=== PATIENT | female | born 1940 | race American Indian/Alaskan Native ===

== ENCOUNTER → 2017-05-02 08:49 | Outpatient (CLI) | payer OTHER ==
[~2017-05-02 08:49] MED LIST: LASIX20 MG; NORVASC5 MG; ZOCOR20 MG
== END | disposition home or self-care (01) ==
LOC: LAB 08:49
DX: I10 Essential (primary) hypertension (principal); M54.5 Low back pain; M81.0 Age-related osteoporosis without current pathological fracture; M79.7 Fibromyalgia; M35.3 Polymyalgia rheumatica; R26.2 Difficulty in walking, not elsewhere classified; R26.89 Other abnormalities of gait and mobility; H40.10X1 Unspecified open-angle glaucoma, mild stage; M25.522 Pain in left elbow; Z12.31 Encounter for screening mammogram for malignant neoplasm of breast; Z13.820 Encounter for screening for osteoporosis; Z12.11 Encounter for screening for malignant neoplasm of colon; M89.8X9 Other specified disorders of bone, unspecified site; G62.89 Other specified polyneuropathies; M15.8 Other polyosteoarthritis; E78.89 Other lipoprotein metabolism disorders; I49.8 Other specified cardiac arrhythmias; I73.89 Other specified peripheral vascular diseases

== ENCOUNTER 2017-05-02 09:41 | Outpatient (CLI) | payer OTHER | END 2017-05-02 09:54 | disposition home or self-care (01) | LOC: MAMO-SONO 09:41 | DX: Z12.31 Encounter for screening mammogram for malignant neoplasm of breast (principal); Z87.898 Personal history of other specified conditions; I10 Essential (primary) hypertension; M54.5 Low back pain; E78.9 Disorder of lipoprotein metabolism, unspecified; M89.9 Disorder of bone, unspecified; G62.89 Other specified polyneuropathies; M15.8 Other polyosteoarthritis; M81.0 Age-related osteoporosis without current pathological fracture; I49.9 Cardiac arrhythmia, unspecified; I73.89 Other specified peripheral vascular diseases; M79.7 Fibromyalgia; M35.3 Polymyalgia rheumatica; R26.2 Difficulty in walking, not elsewhere classified ==

== ENCOUNTER 2017-08-03 08:35 | Outpatient (CLI) | payer OTHER | END 2017-08-03 08:43 | disposition home or self-care (01) | LOC: LAB 08:35 | DX: I10 Essential (primary) hypertension (principal); M54.5 Low back pain; E78.89 Other lipoprotein metabolism disorders; M89.8X8 Other specified disorders of bone, other site; G62.89 Other specified polyneuropathies; M15.8 Other polyosteoarthritis; M81.0 Age-related osteoporosis without current pathological fracture; I73.89 Other specified peripheral vascular diseases; M79.7 Fibromyalgia; M35.3 Polymyalgia rheumatica; R26.2 Difficulty in walking, not elsewhere classified; R26.89 Other abnormalities of gait and mobility; H40.10X1 Unspecified open-angle glaucoma, mild stage; M25.522 Pain in left elbow; Z12.31 Encounter for screening mammogram for malignant neoplasm of breast; Z13.820 Encounter for screening for osteoporosis ==

== ENCOUNTER 2017-11-07 08:03 | Outpatient (CLI) | payer OTHER | END 2017-11-07 08:08 | disposition home or self-care (01) | LOC: LAB 08:03 | DX: I10 Essential (primary) hypertension (principal); M54.5 Low back pain; E78.89 Other lipoprotein metabolism disorders; M89.9 Disorder of bone, unspecified; G62.89 Other specified polyneuropathies; M15.8 Other polyosteoarthritis; M81.0 Age-related osteoporosis without current pathological fracture; I49.8 Other specified cardiac arrhythmias; I73.89 Other specified peripheral vascular diseases; M25.522 Pain in left elbow; Z12.31 Encounter for screening mammogram for malignant neoplasm of breast; Z13.820 Encounter for screening for osteoporosis; Z12.11 Encounter for screening for malignant neoplasm of colon ==

== ENCOUNTER 2017-11-10 15:01 | Emergency (ER) | payer OTHER ==
[~2017-11-10] VITALS: Ht 154.9 cm; Wt 67.1 kg
== END 2017-11-10 21:24 | disposition home or self-care (01) ==
LOC: ER 15:01
DX: M54.2 Cervicalgia (principal); M25.512 Pain in left shoulder

== ENCOUNTER 2018-03-09 08:11 | Outpatient (CLI) | payer OTHER | END 2018-03-09 08:18 | disposition home or self-care (01) | LOC: LAB 08:11 | DX: I10 Essential (primary) hypertension (principal); M54.5 Low back pain; E78.89 Other lipoprotein metabolism disorders; M89.8X8 Other specified disorders of bone, other site; G62.89 Other specified polyneuropathies; M15.0 Primary generalized (osteo)arthritis; I49.8 Other specified cardiac arrhythmias; I73.89 Other specified peripheral vascular diseases; M79.7 Fibromyalgia; M35.3 Polymyalgia rheumatica; R26.2 Difficulty in walking, not elsewhere classified; R26.89 Other abnormalities of gait and mobility; H40.10X1 Unspecified open-angle glaucoma, mild stage; M25.522 Pain in left elbow; Z12.31 Encounter for screening mammogram for malignant neoplasm of breast; Z13.820 Encounter for screening for osteoporosis ==

== ENCOUNTER 2018-06-11 08:51 | Outpatient (CLI) | payer OTHER | END 2018-06-11 09:57 | disposition home or self-care (01) | LOC: LAB 08:51 | DX: M54.5 Low back pain (principal); I10 Essential (primary) hypertension; E78.89 Other lipoprotein metabolism disorders; M89.8X8 Other specified disorders of bone, other site; G62.89 Other specified polyneuropathies; M15.8 Other polyosteoarthritis; M81.0 Age-related osteoporosis without current pathological fracture; I49.8 Other specified cardiac arrhythmias; I73.89 Other specified peripheral vascular diseases; M79.7 Fibromyalgia; M35.3 Polymyalgia rheumatica; R26.2 Difficulty in walking, not elsewhere classified; R26.89 Other abnormalities of gait and mobility; H40.10X1 Unspecified open-angle glaucoma, mild stage; M25.522 Pain in left elbow; M06.4 Inflammatory polyarthropathy; Z12.31 Encounter for screening mammogram for malignant neoplasm of breast; Z68.27 Body mass index [BMI] 27.0-27.9, adult ==

== ENCOUNTER → 2018-06-11 | Outpatient (CLI) | payer OTHER | END | disposition home or self-care (01) | LOC: MAMO-SONO 09:45 | DX: Z12.31 Encounter for screening mammogram for malignant neoplasm of breast (principal); Z87.898 Personal history of other specified conditions; I10 Essential (primary) hypertension; M54.5 Low back pain; E78.89 Other lipoprotein metabolism disorders; M81.0 Age-related osteoporosis without current pathological fracture; M79.7 Fibromyalgia; M35.3 Polymyalgia rheumatica; R26.2 Difficulty in walking, not elsewhere classified ==

== ENCOUNTER 2018-09-18 07:18 | Outpatient (CLI) | payer OTHER | END 2018-09-18 07:29 | disposition home or self-care (01) | LOC: LAB 07:18 | DX: M54.5 Low back pain (principal); I10 Essential (primary) hypertension; E78.89 Other lipoprotein metabolism disorders; M89.8X8 Other specified disorders of bone, other site; G62.89 Other specified polyneuropathies; M15.8 Other polyosteoarthritis; M81.0 Age-related osteoporosis without current pathological fracture; I49.8 Other specified cardiac arrhythmias; I73.89 Other specified peripheral vascular diseases; M79.7 Fibromyalgia; M35.3 Polymyalgia rheumatica; R26.2 Difficulty in walking, not elsewhere classified; R26.89 Other abnormalities of gait and mobility; H40.10X1 Unspecified open-angle glaucoma, mild stage; M25.522 Pain in left elbow; M06.4 Inflammatory polyarthropathy; Z12.31 Encounter for screening mammogram for malignant neoplasm of breast; Z68.27 Body mass index [BMI] 27.0-27.9, adult ==

== ENCOUNTER 2018-11-22 06:42 | Emergency (ER) | payer OTHER ==
[~2018-11-22] VITALS: Ht 154.9 cm; Wt 65.3 kg
[2018-11-22] MEDS ORDERED: NORVASC10 MG PO (07:02)
[2018-11-22] MEDS ORDERED: SIMVASTATIN10 MG PO (07:02)
== END 2018-11-22 12:12 | disposition home or self-care (01) ==
LOC: ER 06:42
DX: M75.41 Impingement syndrome of right shoulder (principal); M75.81 Other shoulder lesions, right shoulder

== ENCOUNTER 2019-01-02 07:26 | Outpatient (CLI) | payer OTHER ==
[~2019-01-02 07:26] MED LIST changes: +NORVASC10 MG PO; +SIMVASTATIN10 MG PO
== END 2019-01-02 07:29 | disposition home or self-care (01) ==
LOC: LAB 07:26
DX: M54.5 Low back pain (principal); I10 Essential (primary) hypertension; E78.89 Other lipoprotein metabolism disorders; M89.8X8 Other specified disorders of bone, other site; G62.89 Other specified polyneuropathies; M15.8 Other polyosteoarthritis; M81.0 Age-related osteoporosis without current pathological fracture; I49.8 Other specified cardiac arrhythmias; I73.89 Other specified peripheral vascular diseases; M35.3 Polymyalgia rheumatica; R26.2 Difficulty in walking, not elsewhere classified; R26.89 Other abnormalities of gait and mobility; H40.10X1 Unspecified open-angle glaucoma, mild stage; M25.522 Pain in left elbow; M06.4 Inflammatory polyarthropathy; H52.7 Unspecified disorder of refraction; Z13.5 Encounter for screening for eye and ear disorders; Z96.1 Presence of intraocular lens; Z12.31 Encounter for screening mammogram for malignant neoplasm of breast; Z68.27 Body mass index [BMI] 27.0-27.9, adult

== ENCOUNTER 2019-02-22 02:17 | Emergency (ER) | payer OTHER ==
[~2019-02-22] VITALS: Ht 154.9 cm; Wt 67.1 kg
[2019-02-22] MEDS ORDERED: MOBIC15 MG PO (06:59)
== END 2019-02-22 07:19 | disposition home or self-care (01) ==
LOC: ER 02:17
DX: M06.89 Other specified rheumatoid arthritis, multiple sites (principal)

== ENCOUNTER 2019-04-13 09:37 | Emergency (ER) | payer OTHER ==
[~2019-04-13] VITALS: Ht 154.9 cm; Wt 65.3 kg
[~2019-04-13 09:37] MED LIST changes: +MOBIC15 MG PO
== END 2019-04-13 12:47 | disposition home or self-care (01) ==
LOC: ER 09:37
DX: M13.842 Other specified arthritis, left hand (principal)

== ENCOUNTER 2019-04-22 08:43 | Outpatient (CLI) | payer OTHER | END 2019-04-22 15:00 | disposition home or self-care (01) | LOC: LAB 08:43 | DX: M54.5 Low back pain (principal); I10 Essential (primary) hypertension; E78.89 Other lipoprotein metabolism disorders; M89.8X8 Other specified disorders of bone, other site; G62.89 Other specified polyneuropathies; M15.8 Other polyosteoarthritis; M81.0 Age-related osteoporosis without current pathological fracture; I49.8 Other specified cardiac arrhythmias; I73.89 Other specified peripheral vascular diseases; M79.7 Fibromyalgia; M35.3 Polymyalgia rheumatica; R26.2 Difficulty in walking, not elsewhere classified; R26.89 Other abnormalities of gait and mobility; H40.10X1 Unspecified open-angle glaucoma, mild stage; M25.522 Pain in left elbow; M06.4 Inflammatory polyarthropathy; H52.7 Unspecified disorder of refraction; Z13.5 Encounter for screening for eye and ear disorders; Z96.1 Presence of intraocular lens; H40.1132 Primary open-angle glaucoma, bilateral, moderate stage; M06.9 Rheumatoid arthritis, unspecified; Z12.31 Encounter for screening mammogram for malignant neoplasm of breast; Z68.27 Body mass index [BMI] 27.0-27.9, adult; Z12.11 Encounter for screening for malignant neoplasm of colon ==

== ENCOUNTER 2019-04-23 10:20 | Outpatient (CLI) | payer OTHER | END 2019-04-23 10:23 | disposition home or self-care (01) | LOC: LAB 10:20 | DX: M54.5 Low back pain (principal); E78.89 Other lipoprotein metabolism disorders; I10 Essential (primary) hypertension; M89.8X8 Other specified disorders of bone, other site; G62.89 Other specified polyneuropathies; M15.8 Other polyosteoarthritis; M81.0 Age-related osteoporosis without current pathological fracture; I49.8 Other specified cardiac arrhythmias; I73.89 Other specified peripheral vascular diseases; M79.7 Fibromyalgia; M35.3 Polymyalgia rheumatica; R26.2 Difficulty in walking, not elsewhere classified; R26.89 Other abnormalities of gait and mobility; H40.10X1 Unspecified open-angle glaucoma, mild stage; M25.522 Pain in left elbow; M06.4 Inflammatory polyarthropathy; H52.7 Unspecified disorder of refraction; Z13.5 Encounter for screening for eye and ear disorders; Z96.1 Presence of intraocular lens; H40.1132 Primary open-angle glaucoma, bilateral, moderate stage; M06.9 Rheumatoid arthritis, unspecified; Z12.31 Encounter for screening mammogram for malignant neoplasm of breast; Z68.27 Body mass index [BMI] 27.0-27.9, adult; Z12.11 Encounter for screening for malignant neoplasm of colon ==

== ENCOUNTER 2019-05-06 11:20 | Outpatient (CLI) | payer OTHER | END 2019-05-06 11:25 | disposition home or self-care (01) | LOC: RAD 11:20 | DX: M06.822 Other specified rheumatoid arthritis, left elbow (principal) ==

== ENCOUNTER 2019-08-04 07:40 | Outpatient (CLI) | payer OTHER | END 2019-08-04 15:00 | disposition home or self-care (01) | LOC: LAB 07:40 | PROVIDERS: ATTEND Internal Medicine | DX: I10 Essential (primary) hypertension (principal); M54.5 Low back pain; E78.89 Other lipoprotein metabolism disorders; M89.8X8 Other specified disorders of bone, other site; G62.89 Other specified polyneuropathies; M15.8 Other polyosteoarthritis; M81.0 Age-related osteoporosis without current pathological fracture; I49.8 Other specified cardiac arrhythmias; I73.89 Other specified peripheral vascular diseases; M79.7 Fibromyalgia; M35.3 Polymyalgia rheumatica; R26.2 Difficulty in walking, not elsewhere classified; R26.89 Other abnormalities of gait and mobility; H40.10X1 Unspecified open-angle glaucoma, mild stage; M25.522 Pain in left elbow; M06.4 Inflammatory polyarthropathy; H52.7 Unspecified disorder of refraction; Z13.5 Encounter for screening for eye and ear disorders; Z96.1 Presence of intraocular lens; H40.1132 Primary open-angle glaucoma, bilateral, moderate stage; M06.9 Rheumatoid arthritis, unspecified; Z12.31 Encounter for screening mammogram for malignant neoplasm of breast; Z68.27 Body mass index [BMI] 27.0-27.9, adult ==

== ENCOUNTER 2019-08-04 09:10 | Outpatient (CLI) | payer OTHER | END 2019-08-04 09:21 | disposition home or self-care (01) | LOC: MAMO-SONO 09:10 | PROVIDERS: ATTEND Internal Medicine | DX: Z12.31 Encounter for screening mammogram for malignant neoplasm of breast (principal); Z87.898 Personal history of other specified conditions; M54.5 Low back pain; E78.89 Other lipoprotein metabolism disorders; M89.8X8 Other specified disorders of bone, other site; G62.89 Other specified polyneuropathies; M15.8 Other polyosteoarthritis; M81.0 Age-related osteoporosis without current pathological fracture; I49.8 Other specified cardiac arrhythmias; I73.89 Other specified peripheral vascular diseases; M79.7 Fibromyalgia; M35.3 Polymyalgia rheumatica; I10 Essential (primary) hypertension; R26.2 Difficulty in walking, not elsewhere classified ==

== ENCOUNTER 2019-08-04 11:40 | Outpatient (CLI) | payer OTHER | END 2019-08-04 11:57 | disposition home or self-care (01) | LOC: NUCLEAR 11:40 | PROVIDERS: ATTEND Internal Medicine | DX: M81.0 Age-related osteoporosis without current pathological fracture (principal); M89.8X0 Other specified disorders of bone, multiple sites; E78.89 Other lipoprotein metabolism disorders; M54.5 Low back pain; I10 Essential (primary) hypertension; G62.89 Other specified polyneuropathies; M15.9 Polyosteoarthritis, unspecified; I49.8 Other specified cardiac arrhythmias; I73.9 Peripheral vascular disease, unspecified; M79.7 Fibromyalgia; M35.3 Polymyalgia rheumatica; R26.2 Difficulty in walking, not elsewhere classified ==

== ENCOUNTER → 2019-08-18 | Outpatient (CLI) | payer OTHER | END | disposition home or self-care (01) | LOC: SONOGRAMA 10:32 | PROVIDERS: ATTEND Pathology Anatomic Pathology & Clinical Pathology | DX: N63.20 Unspecified lump in the left breast, unspecified quadrant (principal) ==

== ENCOUNTER → 2019-10-16 08:52 | Outpatient (CLI) | payer OTHER | END | disposition home or self-care (01) | LOC: LAB 08:52 | PROVIDERS: ATTEND Internal Medicine | DX: M05.8 Other rheumatoid arthritis with rheumatoid factor (principal); M89.8X8 Other specified disorders of bone, other site; I10 Essential (primary) hypertension; M54.5 Low back pain; E78.89 Other lipoprotein metabolism disorders; G62.89 Other specified polyneuropathies; M15.8 Other polyosteoarthritis; M81.0 Age-related osteoporosis without current pathological fracture; I49.8 Other specified cardiac arrhythmias; I73.89 Other specified peripheral vascular diseases; M79.7 Fibromyalgia; M35.3 Polymyalgia rheumatica; R26.2 Difficulty in walking, not elsewhere classified; R26.89 Other abnormalities of gait and mobility; H40.10X1 Unspecified open-angle glaucoma, mild stage; M25.522 Pain in left elbow; M06.4 Inflammatory polyarthropathy; H52.7 Unspecified disorder of refraction; Z13.5 Encounter for screening for eye and ear disorders; Z96.1 Presence of intraocular lens; H40.1132 Primary open-angle glaucoma, bilateral, moderate stage; M06.9 Rheumatoid arthritis, unspecified; Z12.31 Encounter for screening mammogram for malignant neoplasm of breast; D25.1 Intramural leiomyoma of uterus; Z68.27 Body mass index [BMI] 27.0-27.9, adult; C50.011 Malignant neoplasm of nipple and areola, right female breast; C50.111 Malignant neoplasm of central portion of right female breast ==

== ENCOUNTER 2020-02-05 07:25 | Outpatient (CLI) | payer OTHER | END 2020-02-05 07:32 | disposition home or self-care (01) | LOC: LAB 07:25 | PROVIDERS: ATTEND Internal Medicine | DX: I10 Essential (primary) hypertension (principal); M54.5 Low back pain; E78.89 Other lipoprotein metabolism disorders; M89.8X8 Other specified disorders of bone, other site; G62.89 Other specified polyneuropathies; M15.8 Other polyosteoarthritis; M81.0 Age-related osteoporosis without current pathological fracture; I49.8 Other specified cardiac arrhythmias; I73.89 Other specified peripheral vascular diseases; M79.7 Fibromyalgia; M35.3 Polymyalgia rheumatica; R26.2 Difficulty in walking, not elsewhere classified; R26.89 Other abnormalities of gait and mobility; H40.10X1 Unspecified open-angle glaucoma, mild stage; M25.522 Pain in left elbow; M06.4 Inflammatory polyarthropathy; H52.7 Unspecified disorder of refraction; Z13.5 Encounter for screening for eye and ear disorders; Z96.1 Presence of intraocular lens; H40.1132 Primary open-angle glaucoma, bilateral, moderate stage; M06.8A Other specified rheumatoid arthritis, other specified site; Z12.31 Encounter for screening mammogram for malignant neoplasm of breast; D25.1 Intramural leiomyoma of uterus; Z68.27 Body mass index [BMI] 27.0-27.9, adult; C50.011 Malignant neoplasm of nipple and areola, right female breast; C50.111 Malignant neoplasm of central portion of right female breast ==

== ENCOUNTER 2020-05-07 07:30 | Outpatient (CLI) | payer OTHER | END 2020-05-07 07:38 | disposition home or self-care (01) | LOC: LAB 07:30 | PROVIDERS: ATTEND Internal Medicine | DX: I10 Essential (primary) hypertension (principal); M54.5 Low back pain; E78.89 Other lipoprotein metabolism disorders; M89.8X8 Other specified disorders of bone, other site; G62.89 Other specified polyneuropathies; M15.8 Other polyosteoarthritis; M81.0 Age-related osteoporosis without current pathological fracture; I49.8 Other specified cardiac arrhythmias; I73.89 Other specified peripheral vascular diseases; M79.7 Fibromyalgia; M35.3 Polymyalgia rheumatica; R26.2 Difficulty in walking, not elsewhere classified; R26.89 Other abnormalities of gait and mobility; H40.10X1 Unspecified open-angle glaucoma, mild stage; M25.522 Pain in left elbow; M06.4 Inflammatory polyarthropathy; H52.7 Unspecified disorder of refraction; Z13.5 Encounter for screening for eye and ear disorders; Z96.1 Presence of intraocular lens; H40.1132 Primary open-angle glaucoma, bilateral, moderate stage; M06.09 Rheumatoid arthritis without rheumatoid factor, multiple sites; Z12.31 Encounter for screening mammogram for malignant neoplasm of breast; D25.1 Intramural leiomyoma of uterus; Z12.11 Encounter for screening for malignant neoplasm of colon; Z68.27 Body mass index [BMI] 27.0-27.9, adult; C50.011 Malignant neoplasm of nipple and areola, right female breast; C50.111 Malignant neoplasm of central portion of right female breast ==

== ENCOUNTER → 2020-05-10 09:57 | Outpatient (CLI) | payer OTHER | END | disposition home or self-care (01) | LOC: LAB 09:57 | PROVIDERS: ATTEND Internal Medicine | DX: I10 Essential (primary) hypertension (principal); M54.5 Low back pain; E78.89 Other lipoprotein metabolism disorders; M89.8X8 Other specified disorders of bone, other site; G62.89 Other specified polyneuropathies; M15.8 Other polyosteoarthritis; M81.0 Age-related osteoporosis without current pathological fracture; I49.8 Other specified cardiac arrhythmias; I73.89 Other specified peripheral vascular diseases; M79.7 Fibromyalgia; M35.3 Polymyalgia rheumatica; R26.2 Difficulty in walking, not elsewhere classified; R26.89 Other abnormalities of gait and mobility; M25.522 Pain in left elbow; M06.4 Inflammatory polyarthropathy; H52.7 Unspecified disorder of refraction; Z13.5 Encounter for screening for eye and ear disorders; Z96.1 Presence of intraocular lens; H40.1132 Primary open-angle glaucoma, bilateral, moderate stage; M06.8A Other specified rheumatoid arthritis, other specified site; Z12.31 Encounter for screening mammogram for malignant neoplasm of breast; D25.1 Intramural leiomyoma of uterus; Z68.27 Body mass index [BMI] 27.0-27.9, adult; C50.012 Malignant neoplasm of nipple and areola, left female breast; C50.111 Malignant neoplasm of central portion of right female breast; Z12.11 Encounter for screening for malignant neoplasm of colon ==

== ENCOUNTER → 2020-08-12 08:26 | Outpatient (CLI) | payer OTHER | END | disposition home or self-care (01) | LOC: LAB 08:26 | PROVIDERS: ATTEND Internal Medicine | DX: M54.5 Low back pain (principal); I10 Essential (primary) hypertension; E78.9 Disorder of lipoprotein metabolism, unspecified; M89.9 Disorder of bone, unspecified; G62.9 Polyneuropathy, unspecified; M15.9 Polyosteoarthritis, unspecified; M81.0 Age-related osteoporosis without current pathological fracture; I49.9 Cardiac arrhythmia, unspecified; I73.9 Peripheral vascular disease, unspecified; M79.7 Fibromyalgia; M35.3 Polymyalgia rheumatica; R26.2 Difficulty in walking, not elsewhere classified; R26.89 Other abnormalities of gait and mobility; H40.10X1 Unspecified open-angle glaucoma, mild stage; M25.522 Pain in left elbow; N06.4 Isolated proteinuria with diffuse endocapillary proliferative glomerulonephritis; H52.7 Unspecified disorder of refraction; Z13.5 Encounter for screening for eye and ear disorders; Z96.1 Presence of intraocular lens; H40.1132 Primary open-angle glaucoma, bilateral, moderate stage; M06.9 Rheumatoid arthritis, unspecified; Z12.31 Encounter for screening mammogram for malignant neoplasm of breast; D25.1 Intramural leiomyoma of uterus; Z68.27 Body mass index [BMI] 27.0-27.9, adult; C50.011 Malignant neoplasm of nipple and areola, right female breast; C50.111 Malignant neoplasm of central portion of right female breast ==

== ENCOUNTER → 2020-11-16 08:33 | Outpatient (CLI) | payer OTHER | END | disposition home or self-care (01) | LOC: LAB 08:33 | PROVIDERS: ATTEND Internal Medicine | DX: I10 Essential (primary) hypertension (principal); M54.5 Low back pain; E78.89 Other lipoprotein metabolism disorders; M89.8X8 Other specified disorders of bone, other site; G62.89 Other specified polyneuropathies; M15.8 Other polyosteoarthritis; M81.0 Age-related osteoporosis without current pathological fracture; I73.89 Other specified peripheral vascular diseases; M79.7 Fibromyalgia; M35.3 Polymyalgia rheumatica; R26.2 Difficulty in walking, not elsewhere classified; R26.89 Other abnormalities of gait and mobility; M25.522 Pain in left elbow; M06.4 Inflammatory polyarthropathy; H40.1132 Primary open-angle glaucoma, bilateral, moderate stage; H40.10X1 Unspecified open-angle glaucoma, mild stage; Z12.31 Encounter for screening mammogram for malignant neoplasm of breast; D25.1 Intramural leiomyoma of uterus; Z68.27 Body mass index [BMI] 27.0-27.9, adult; C50.011 Malignant neoplasm of nipple and areola, right female breast; C50.111 Malignant neoplasm of central portion of right female breast ==

== ENCOUNTER 2021-02-09 08:07 | Outpatient (CLI) | payer OTHER | END 2021-02-09 08:08 | disposition home or self-care (01) | LOC: LAB 08:07 | PROVIDERS: ATTEND Internal Medicine | DX: I10 Essential (primary) hypertension (principal); M54.59 Other low back pain; E78.89 Other lipoprotein metabolism disorders; M89.8X8 Other specified disorders of bone, other site; G62.89 Other specified polyneuropathies; M15.8 Other polyosteoarthritis; M81.0 Age-related osteoporosis without current pathological fracture; I73.89 Other specified peripheral vascular diseases; M79.7 Fibromyalgia; M35.3 Polymyalgia rheumatica; R26.2 Difficulty in walking, not elsewhere classified; R26.89 Other abnormalities of gait and mobility; M25.522 Pain in left elbow; M06.4 Inflammatory polyarthropathy; H40.1132 Primary open-angle glaucoma, bilateral, moderate stage; M06.8A Other specified rheumatoid arthritis, other specified site; H40.10X1 Unspecified open-angle glaucoma, mild stage; Z12.31 Encounter for screening mammogram for malignant neoplasm of breast; D25.1 Intramural leiomyoma of uterus; Z68.27 Body mass index [BMI] 27.0-27.9, adult; C50.011 Malignant neoplasm of nipple and areola, right female breast; C50.111 Malignant neoplasm of central portion of right female breast ==

== ENCOUNTER 2021-05-10 07:27 | Outpatient (CLI) | payer OTHER ==
[~2021-05-10 07:27] MED LIST changes: +KETO10TA2 PO; +PERCOCET 5-3251 EACH PO
== END 2021-05-10 08:28 | disposition home or self-care (01) ==
LOC: LAB 07:27
PROVIDERS: ATTEND Internal Medicine
DX: N60.11 Diffuse cystic mastopathy of right breast (principal); N60.12 Diffuse cystic mastopathy of left breast; I10 Essential (primary) hypertension; M54.50 Low back pain, unspecified; E78.9 Disorder of lipoprotein metabolism, unspecified; M89.9 Disorder of bone, unspecified; G62.9 Polyneuropathy, unspecified; M15.9 Polyosteoarthritis, unspecified; M81.0 Age-related osteoporosis without current pathological fracture; I73.9 Peripheral vascular disease, unspecified; M35.3 Polymyalgia rheumatica; R26.2 Difficulty in walking, not elsewhere classified; R26.89 Other abnormalities of gait and mobility; M25.522 Pain in left elbow; M06.4 Inflammatory polyarthropathy; H40.1132 Primary open-angle glaucoma, bilateral, moderate stage; M06.9 Rheumatoid arthritis, unspecified; Z12.31 Encounter for screening mammogram for malignant neoplasm of breast; Z68.27 Body mass index [BMI] 27.0-27.9, adult; C50.011 Malignant neoplasm of nipple and areola, right female breast; C50.111 Malignant neoplasm of central portion of right female breast

== ENCOUNTER 2021-05-10 07:59 | Outpatient (CLI) | payer OTHER | END 2021-05-10 08:11 | disposition home or self-care (01) | LOC: MAMO-SONO 07:59 | PROVIDERS: ATTEND Internal Medicine | DX: N60.11 Diffuse cystic mastopathy of right breast (principal); N60.12 Diffuse cystic mastopathy of left breast ==

== ENCOUNTER 2021-07-01 10:23 | Outpatient (CLI) | payer OTHER | END 2021-07-01 10:29 | disposition home or self-care (01) | LOC: RAD 10:23 | PROVIDERS: ATTEND Orthopaedic Surgery | DX: S42.321D Displaced transverse fracture of shaft of humerus, right arm, subsequent encounter for fracture with routine healing (principal) ==

== ENCOUNTER 2021-08-12 14:02 | Emergency (ER) | payer OTHER ==
[~2021-08-12] VITALS: Ht 154.9 cm; Wt 66.7 kg
== END 2021-08-12 17:20 | disposition home or self-care (01) ==
LOC: ER 14:02
DX: S99.921A Unspecified injury of right foot, initial encounter (principal); M79.671 Pain in right foot; X58.XXXA Exposure to other specified factors, initial encounter; Y93.9 Activity, unspecified; Y92.9 Unspecified place or not applicable; Y99.9 Unspecified external cause status

== ENCOUNTER 2021-09-02 08:01 | Outpatient (CLI) | payer OTHER | END 2021-09-02 08:02 | disposition home or self-care (01) | LOC: LAB 08:01 | PROVIDERS: ATTEND Internal Medicine | DX: M54.50 Low back pain, unspecified (principal); E78.9 Disorder of lipoprotein metabolism, unspecified; M89.9 Disorder of bone, unspecified; G62.9 Polyneuropathy, unspecified; M15.9 Polyosteoarthritis, unspecified; M81.0 Age-related osteoporosis without current pathological fracture; I73.9 Peripheral vascular disease, unspecified; M79.7 Fibromyalgia; M35.3 Polymyalgia rheumatica; R26.2 Difficulty in walking, not elsewhere classified; R26.89 Other abnormalities of gait and mobility; M25.522 Pain in left elbow; M06.4 Inflammatory polyarthropathy; H40.1132 Primary open-angle glaucoma, bilateral, moderate stage; M06.9 Rheumatoid arthritis, unspecified; Z12.31 Encounter for screening mammogram for malignant neoplasm of breast; Z68.27 Body mass index [BMI] 27.0-27.9, adult; C50.011 Malignant neoplasm of nipple and areola, right female breast; I10 Essential (primary) hypertension ==

== ENCOUNTER 2021-12-19 08:14 | Outpatient (CLI) | payer OTHER | END 2021-12-19 08:15 | disposition home or self-care (01) | LOC: LAB 08:14 | PROVIDERS: ATTEND Internal Medicine | DX: I10 Essential (primary) hypertension (principal); M54.50 Low back pain, unspecified; E78.9 Disorder of lipoprotein metabolism, unspecified; M89.9 Disorder of bone, unspecified; G62.9 Polyneuropathy, unspecified; M15.9 Polyosteoarthritis, unspecified; M81.0 Age-related osteoporosis without current pathological fracture; I73.9 Peripheral vascular disease, unspecified; M79.7 Fibromyalgia; M35.3 Polymyalgia rheumatica; R26.2 Difficulty in walking, not elsewhere classified; R26.89 Other abnormalities of gait and mobility; M25.522 Pain in left elbow; M06.9 Rheumatoid arthritis, unspecified; Z12.31 Encounter for screening mammogram for malignant neoplasm of breast; Z68.27 Body mass index [BMI] 27.0-27.9, adult; C50.011 Malignant neoplasm of nipple and areola, right female breast; C50.111 Malignant neoplasm of central portion of right female breast ==

== ENCOUNTER → 2021-12-19 | Outpatient (CLI) | payer OTHER | END | disposition home or self-care (01) | LOC: NUCLEAR 11-07 09:00 | PROVIDERS: ATTEND Internal Medicine | DX: M81.0 Age-related osteoporosis without current pathological fracture (principal) ==

== ENCOUNTER 2022-03-23 09:42 | Outpatient (CLI) | payer OTHER | END 2022-03-23 09:44 | disposition home or self-care (01) | LOC: LAB 09:42 | PROVIDERS: ATTEND Internal Medicine | DX: I10 Essential (primary) hypertension (principal); M54.50 Low back pain, unspecified; E78.9 Disorder of lipoprotein metabolism, unspecified; M89.9 Disorder of bone, unspecified; G62.9 Polyneuropathy, unspecified; M15.9 Polyosteoarthritis, unspecified; M81.0 Age-related osteoporosis without current pathological fracture; I73.9 Peripheral vascular disease, unspecified; M79.7 Fibromyalgia; M35.3 Polymyalgia rheumatica; R26.2 Difficulty in walking, not elsewhere classified; R26.89 Other abnormalities of gait and mobility; M25.522 Pain in left elbow; M06.4 Inflammatory polyarthropathy; H40.1132 Primary open-angle glaucoma, bilateral, moderate stage; M06.9 Rheumatoid arthritis, unspecified; Z12.31 Encounter for screening mammogram for malignant neoplasm of breast; Z68.27 Body mass index [BMI] 27.0-27.9, adult; C50.011 Malignant neoplasm of nipple and areola, right female breast; C50.111 Malignant neoplasm of central portion of right female breast ==

== ENCOUNTER 2022-06-30 07:46 | Outpatient (CLI) | payer OTHER | END 2022-06-30 07:48 | disposition home or self-care (01) | LOC: LAB 07:46 | PROVIDERS: ATTEND Internal Medicine | DX: I10 Essential (primary) hypertension (principal); M54.59 Other low back pain; E78.9 Disorder of lipoprotein metabolism, unspecified; M89.9 Disorder of bone, unspecified; G62.9 Polyneuropathy, unspecified; M15.9 Polyosteoarthritis, unspecified; M81.0 Age-related osteoporosis without current pathological fracture; I73.9 Peripheral vascular disease, unspecified; M79.7 Fibromyalgia; M35.3 Polymyalgia rheumatica; R26.2 Difficulty in walking, not elsewhere classified; R26.89 Other abnormalities of gait and mobility; M25.522 Pain in left elbow; M06.4 Inflammatory polyarthropathy; H40.1132 Primary open-angle glaucoma, bilateral, moderate stage; M06.9 Rheumatoid arthritis, unspecified; Z12.31 Encounter for screening mammogram for malignant neoplasm of breast; Z68.27 Body mass index [BMI] 27.0-27.9, adult; C50.011 Malignant neoplasm of nipple and areola, right female breast ==

== ENCOUNTER 2022-10-02 08:09 | Outpatient (CLI) | payer OTHER | END 2022-10-02 08:11 | disposition home or self-care (01) | LOC: LAB 08:09 | PROVIDERS: ATTEND Internal Medicine | DX: M54.59 Other low back pain (principal); E78.9 Disorder of lipoprotein metabolism, unspecified; M89.9 Disorder of bone, unspecified; G62.9 Polyneuropathy, unspecified; M15.9 Polyosteoarthritis, unspecified; M81.0 Age-related osteoporosis without current pathological fracture; I73.9 Peripheral vascular disease, unspecified; M79.7 Fibromyalgia; M35.3 Polymyalgia rheumatica; R26.2 Difficulty in walking, not elsewhere classified; R26.89 Other abnormalities of gait and mobility; M25.522 Pain in left elbow; M06.9 Rheumatoid arthritis, unspecified; Z12.31 Encounter for screening mammogram for malignant neoplasm of breast; Z68.27 Body mass index [BMI] 27.0-27.9, adult; C50.011 Malignant neoplasm of nipple and areola, right female breast; C50.111 Malignant neoplasm of central portion of right female breast; Z12.11 Encounter for screening for malignant neoplasm of colon; I10 Essential (primary) hypertension ==

== ENCOUNTER 2022-10-02 09:30 | Outpatient (CLI) | payer OTHER | END 2022-10-02 09:39 | disposition home or self-care (01) | LOC: MAMO-SONO 09:30 | PROVIDERS: ATTEND Internal Medicine | DX: Z12.31 Encounter for screening mammogram for malignant neoplasm of breast (principal); N60.11 Diffuse cystic mastopathy of right breast ==

== ENCOUNTER 2022-10-09 07:11 | Emergency (ER) | payer OTHER ==
[~2022-10-09] VITALS: Ht 154.9 cm; Wt 67.1 kg
[2022-10-09] MEDS ORDERED: DICLOFENAC SODI75 MG PO (08:53)
== END 2022-10-09 09:51 | disposition home or self-care (01) ==
LOC: ER 07:11
DX: M79.671 Pain in right foot (principal)
CPT/HCPCS: 96372; 99283; J1885; J3301

== ENCOUNTER 2022-11-30 12:44 | Emergency (ER) | payer OTHER ==
[~2022-11-30] VITALS: Ht 154.9 cm; Wt 67.1 kg
[~2022-11-30 12:44] MED LIST changes: +DICLOFENAC SODI75 MG PO
== END 2022-11-30 15:47 | disposition home or self-care (01) ==
LOC: ER 12:44
DX: M94.0 Chondrocostal junction syndrome [Tietze] (principal); I10 Essential (primary) hypertension; M06.8A Other specified rheumatoid arthritis, other specified site
CPT/HCPCS: 36415; 93005; 96372; 99284; J1885

== ENCOUNTER 2023-01-17 07:41 | Outpatient (CLI) | payer OTHER ==
[2023-01-17 08:57] LABS: HEMOGLOBIN 12.8 g/dL (12.0-15.00); MEAN CELL VOLUME 93.3 fL (80.00-100.00); MEAN CORPUSCULAR HEMOGLOBIN 30.6 pg (27.00-32.0); MEAN CORPUSCULAR HGB CONC 32.8 g/dl (32.0-36.0); PLATELET COUNT 215 K/uL (150-450); RED BLOOD COUNT 4.18 M/uL (4.00-6.00); RED CELL DISTRIBUTION WIDTH 13.6 % (11.5-14.5)
[2023-01-17 08:57] LABS: PH,URINE 5.5 (5.0-8.0); URINE APPEARANCE Clear; URINE BILIRRUBIN Negative (NEGATIVE); URINE BLOOD Trace; URINE COLOR Yellow; URINE GLUCOSE Negative (NEGATIVE); URINE LEUKOCYTE Small; URINE NITRATE Negative; URINE PROTEIN Trace (NEGATIVE); URINE UROBILINOGEN 0.2 E.U./dl
[2023-01-17 09:04] LABS: URINE BACTERIA 148.6 uL (0.0-1933); URINE EPITHELIAL CELLS 6.4 uL (0.0-38.8); URINE WBC 13.2 uL (0.0-23.2)
[2023-01-17 09:10] LABS: URINE RBC 1.2 uL (0.0-20.8)
[2023-01-17 09:51] LABS: ALBUMIN 3.3 gm/dL (3.4-5.0); BILIRUBIN TOTAL 0.41 mg/dL (0.3-1.2); CALCIUM 10.1 mg/dL (8.5-10.1); CREATININE SERUM 0.49 mg/dL (0.55-1.02); GFR 121.51; GLOBULINA 4.2 G/DL (2.4-3.5); POTASSIUM 4.52 mEq/L (3.5-5.1); TOTAL PROTEIN 7.5 gm/dL (6.4-8.2)
== END 2023-01-17 07:48 | disposition home or self-care (01) ==
LOC: LAB 07:41
PROVIDERS: ATTEND Internal Medicine
DX: I10 Essential (primary) hypertension (principal); M54.50 Low back pain, unspecified; E78.9 Disorder of lipoprotein metabolism, unspecified; M89.9 Disorder of bone, unspecified; G62.9 Polyneuropathy, unspecified; M15.9 Polyosteoarthritis, unspecified; M81.0 Age-related osteoporosis without current pathological fracture; I73.9 Peripheral vascular disease, unspecified; M79.7 Fibromyalgia; M35.3 Polymyalgia rheumatica; R26.2 Difficulty in walking, not elsewhere classified; R26.89 Other abnormalities of gait and mobility; M25.522 Pain in left elbow; M06.4 Inflammatory polyarthropathy; H40.1132 Primary open-angle glaucoma, bilateral, moderate stage; M06.9 Rheumatoid arthritis, unspecified; M62.838 Other muscle spasm; M62.830 Muscle spasm of back; H52.533 Spasm of accommodation, bilateral; Z12.31 Encounter for screening mammogram for malignant neoplasm of breast; Z68.27 Body mass index [BMI] 27.0-27.9, adult; C50.011 Malignant neoplasm of nipple and areola, right female breast; C50.111 Malignant neoplasm of central portion of right female breast

== ENCOUNTER → 2023-04-18 07:33 | Outpatient (CLI) | payer OTHER ==
[2023-04-18 08:24] LABS: HEMATOCRIT 36.3 % (36.0-45.00); HEMOGLOBIN 12.2 g/dL (12.0-15.00); MEAN CELL VOLUME 88.9 fL (80.00-100.00); MEAN CORPUSCULAR HEMOGLOBIN 29.9 pg (27.00-32.0); MEAN CORPUSCULAR HGB CONC 33.6 g/dl (32.0-36.0); PLATELET COUNT 206 K/uL (150-450); RED BLOOD COUNT 4.08 M/uL (4.00-6.00); RED CELL DISTRIBUTION WIDTH 14.3 % (11.5-14.5)
[2023-04-18 08:24] LABS: PH,URINE 5.5 (5.0-8.0); URINE APPEARANCE Clear; URINE BILIRRUBIN Negative (NEGATIVE); URINE BLOOD Negative; URINE COLOR Yellow; URINE GLUCOSE Negative (NEGATIVE); URINE LEUKOCYTE Small; URINE NITRATE Negative; URINE PROTEIN 30 (NEGATIVE); URINE UROBILINOGEN 0.2 E.U./dl
[2023-04-18 08:28] LABS: URINE BACTERIA 836.6 uL (0.0-1933); URINE EPITHELIAL CELLS 25.5 uL (0.0-38.8); URINE WBC 58.5 uL (0.0-23.2)
[2023-04-18 08:30] LABS: URINE RBC 1.7 uL (0.0-20.8)
[2023-04-18 08:42] LABS: ob NEGATIVE (NEGATIVE)
[2023-04-18 09:02] LABS: ALBUMIN 3.6 gm/dL (3.4-5.0); BILIRUBIN TOTAL 0.51 mg/dL (0.3-1.2); CALCIUM 10.6 mg/dL (8.5-10.1); CHOL HDL RATIO 4.1 (0-5.0); CREATININE SERUM 0.6 mg/dL (0.55-1.02); GFR 96.19; GLOBULINA 4.6 G/DL (2.4-3.5); POTASSIUM 3.97 mEq/L (3.5-5.1); TOTAL PROTEIN 8.2 gm/dL (6.4-8.2)
== END | disposition home or self-care (01) ==
LOC: LAB 07:33
PROVIDERS: ATTEND Internal Medicine
DX: E78.9 Disorder of lipoprotein metabolism, unspecified (principal); I10 Essential (primary) hypertension; M89.9 Disorder of bone, unspecified; C50.011 Malignant neoplasm of nipple and areola, right female breast; C50.111 Malignant neoplasm of central portion of right female breast

== ENCOUNTER 2023-09-18 10:56 | Emergency (ER) | payer OTHER ==
[~2023-09-18] VITALS: Ht 154.9 cm; Wt 67.1 kg
[2023-09-18] MEDS ORDERED: GENTAMICIN SULFA5 ML OP (14:07)
== END 2023-09-18 14:23 | disposition home or self-care (01) ==
LOC: ER 10:57
DX: H66.90 Otitis media, unspecified, unspecified ear (principal)

== ENCOUNTER 2023-10-18 08:11 | Outpatient (CLI) | payer OTHER ==
[~2023-10-18 08:11] MED LIST changes: +GENTAMICIN SULFA5 ML OP
[2023-10-18 09:01] LABS: HEMOGLOBIN 12.3 g/dL (12.0-15.00); MEAN CORPUSCULAR HEMOGLOBIN 29.5 pg (27.00-32.0); MEAN CORPUSCULAR HGB CONC 33.2 g/dl (32.0-36.0); PLATELET COUNT 182 K/uL (150-450); RED BLOOD COUNT 4.16 M/uL (4.00-6.00); RED CELL DISTRIBUTION WIDTH 14.4 % (11.5-14.5)
[2023-10-18 09:26] LABS: PH,URINE 5.5 (5.0-8.0); URINE APPEARANCE Clear; URINE BILIRRUBIN Negative (NEGATIVE); URINE BLOOD Negative; URINE COLOR Yellow; URINE GLUCOSE Negative (NEGATIVE); URINE KETONE Negative (NEGATIVE); URINE LEUKOCYTE Negative; URINE NITRATE Negative; URINE PROTEIN 30 (NEGATIVE); URINE UROBILINOGEN 0.2 E.U./dl
[2023-10-18 09:30] LABS: URINE BACTERIA 55.4 uL (0.0-1933); URINE EPITHELIAL CELLS 2.1 uL (0.0-38.8); URINE RBC 5.9 uL (0.0-20.8)
[2023-10-18 09:39] LABS: ALBUMIN 3.6 gm/dL (3.4-5.0); BILIRUBIN TOTAL 0.27 mg/dL (0.3-1.2); CALCIUM 10.1 mg/dL (8.5-10.1); CREATININE SERUM 0.53 mg/dL (0.55-1.02); GFR 110.99; GLOBULINA 4.4 G/DL (2.4-3.5); POTASSIUM 4.29 mEq/L (3.5-5.1)
[2023-10-18 09:47] LABS: URINE CAST 0.15 uL (0.0-1.40)
== END 2023-10-18 08:18 | disposition home or self-care (01) ==
LOC: LAB 08:11
PROVIDERS: ATTEND Internal Medicine
DX: E78.9 Disorder of lipoprotein metabolism, unspecified (principal); I10 Essential (primary) hypertension; M89.9 Disorder of bone, unspecified; G62.9 Polyneuropathy, unspecified; M15.9 Polyosteoarthritis, unspecified; M81.0 Age-related osteoporosis without current pathological fracture; I73.9 Peripheral vascular disease, unspecified; M79.7 Fibromyalgia; M35.3 Polymyalgia rheumatica; R26.2 Difficulty in walking, not elsewhere classified; R26.89 Other abnormalities of gait and mobility; M25.522 Pain in left elbow; M06.4 Inflammatory polyarthropathy; H40.1132 Primary open-angle glaucoma, bilateral, moderate stage; M06.9 Rheumatoid arthritis, unspecified; M62.838 Other muscle spasm; M62.830 Muscle spasm of back; H52.533 Spasm of accommodation, bilateral; Z12.31 Encounter for screening mammogram for malignant neoplasm of breast; Z68.27 Body mass index [BMI] 27.0-27.9, adult

== ENCOUNTER → 2024-01-22 09:15 | Outpatient (CLI) | payer OTHER ==
[2024-01-22 09:54] LABS: HEMATOCRIT 38.8 % (36.0-45.00); MEAN CELL VOLUME 88.8 fL (80.00-100.00); MEAN CORPUSCULAR HEMOGLOBIN 29.8 pg (27.00-32.0); MEAN CORPUSCULAR HGB CONC 33.6 g/dl (32.0-36.0); PLATELET COUNT 237 K/uL (150-450); RED BLOOD COUNT 4.37 M/uL (4.00-6.00); RED CELL DISTRIBUTION WIDTH 13.7 % (11.5-14.5)
[2024-01-22 10:21] LABS: PH,URINE 5.5 (5.0-8.0); URINE APPEARANCE Clear; URINE BILIRRUBIN Negative (NEGATIVE); URINE BLOOD Negative; URINE COLOR Yellow; URINE GLUCOSE Negative (NEGATIVE); URINE KETONE Negative (NEGATIVE); URINE LEUKOCYTE Negative; URINE NITRATE Negative; URINE PROTEIN 30 (NEGATIVE); URINE UROBILINOGEN 0.2 E.U./dl
[2024-01-22 10:27] LABS: URINE BACTERIA 380.4 uL (0.0-1933); URINE RBC 2.5 uL (0.0-20.8); URINE WBC 16.8 uL (0.0-23.2)
[2024-01-22 10:57] LABS: ALBUMIN 3.8 gm/dL (3.4-5.0); BILIRUBIN TOTAL 0.39 mg/dL (0.3-1.2); CALCIUM 10.6 mg/dL (8.5-10.1); CHOL HDL RATIO 3.9 (0-5.0); CREATININE SERUM 0.55 mg/dL (0.55-1.02); GFR 106.08; GLOBULINA 4.5 G/DL (2.4-3.5); POTASSIUM 4.12 mEq/L (3.5-5.1); TOTAL PROTEIN 8.3 gm/dL (6.4-8.2)
== END | disposition home or self-care (01) ==
LOC: LAB 09:15
PROVIDERS: ATTEND Internal Medicine
DX: E78.9 Disorder of lipoprotein metabolism, unspecified (principal); I10 Essential (primary) hypertension; G62.9 Polyneuropathy, unspecified; M89.9 Disorder of bone, unspecified; M15.9 Polyosteoarthritis, unspecified; M81.0 Age-related osteoporosis without current pathological fracture; I73.9 Peripheral vascular disease, unspecified; M79.7 Fibromyalgia; M35.3 Polymyalgia rheumatica; R26.2 Difficulty in walking, not elsewhere classified; R26.89 Other abnormalities of gait and mobility; M25.522 Pain in left elbow; M06.4 Inflammatory polyarthropathy; H40.1132 Primary open-angle glaucoma, bilateral, moderate stage; M06.9 Rheumatoid arthritis, unspecified; M62.838 Other muscle spasm; H52.533 Spasm of accommodation, bilateral; H60.399 Other infective otitis externa, unspecified ear; Z12.31 Encounter for screening mammogram for malignant neoplasm of breast; E46 Unspecified protein-calorie malnutrition; Z68.27 Body mass index [BMI] 27.0-27.9, adult

== ENCOUNTER 2024-01-22 09:40 | Emergency (ER) | payer OTHER ==
[~2024-01-22] VITALS: Ht 154.9 cm; Wt 65.3 kg
[2024-01-22 10:12] VITALS: BP 182/74; O2SAT 99
[2024-01-22] MEDS ORDERED: DEXAMETHASONE SODIUM PHOSPHATE 4 MG/ML VIAL IM STA (13:49)
[2024-01-22] MEDS ORDERED: ORPHENADRINE CITRATE 30 MG/ML AMPUL IM STA (13:50)
[2024-01-22] MEDS ORDERED: KETOROLAC TROMETHAMINE 60 MG VIAL IM STA (13:51)
== END 2024-01-22 14:05 | disposition home or self-care (01) ==
LOC: ER 09:43
DX: M05.9 Rheumatoid arthritis with rheumatoid factor, unspecified (principal); M19.90 Unspecified osteoarthritis, unspecified site; R52 Pain, unspecified
CPT/HCPCS: 96372; 99282; J1100; J1885; J2360

== ENCOUNTER 2024-03-05 09:42 | Outpatient (CLI) | payer OTHER | END 2024-03-05 09:47 | disposition home or self-care (01) | LOC: RAD 09:42 | PROVIDERS: ATTEND Physical Medicine & Rehabilitation | DX: M25.521 Pain in right elbow (principal) ==

== ENCOUNTER → 2024-04-21 07:19 | Outpatient (CLI) | payer OTHER ==
[2024-04-21 08:22] LABS: PH,URINE 5.5 (5.0-8.0); URINE APPEARANCE Clear; URINE BILIRRUBIN Negative (NEGATIVE); URINE BLOOD Negative; URINE COLOR Yellow; URINE GLUCOSE Negative (NEGATIVE); URINE KETONE Negative (NEGATIVE); URINE LEUKOCYTE Negative; URINE NITRATE Negative; URINE UROBILINOGEN 0.2 E.U./dl
[2024-04-21 08:25] LABS: URINE BACTERIA 210.4 uL (0.0-1933); URINE EPITHELIAL CELLS 5.2 uL (0.0-38.8); URINE RBC 2.2 uL (0.0-20.8); URINE WBC 6.9 uL (0.0-23.2)
[2024-04-21 08:30] LABS: HEMATOCRIT 38.2 % (36.0-45.00); HEMOGLOBIN 12.2 g/dL (12.0-15.00); MEAN CELL VOLUME 91.4 fL (80.00-100.00); MEAN CORPUSCULAR HEMOGLOBIN 29.3 pg (27.00-32.0); PLATELET COUNT 190 K/uL (150-450); RED BLOOD COUNT 4.18 M/uL (4.00-6.00); RED CELL DISTRIBUTION WIDTH 14.2 % (11.5-14.5)
[2024-04-21 08:43] LABS: URINE CAST 1.03 uL (0.0-1.40); URINE PROTEIN 100 (NEGATIVE)
[2024-04-21 09:33] LABS: ob NEGATIVE (NEGATIVE)
[2024-04-21 09:49] LABS: ALBUMIN 3.6 gm/dL (3.4-5.0); BILIRUBIN TOTAL 0.62 mg/dL (0.3-1.2); CREATININE SERUM 0.66 mg/dL (0.55-1.02); GFR 85.95; GLOBULINA 4.5 G/DL (2.4-3.5); POTASSIUM 4.62 mEq/L (3.5-5.1); T4 TOTAL 7.39 UG/DL (4.8-13.9); TOTAL PROTEIN 8.1 gm/dL (6.4-8.2); TSH 4.11 uIU/mL (0.358-3.74)
== END | disposition home or self-care (01) ==
LOC: LAB 07:19
PROVIDERS: ATTEND Internal Medicine
DX: E78.9 Disorder of lipoprotein metabolism, unspecified (principal); I10 Essential (primary) hypertension; M89.9 Disorder of bone, unspecified; G62.9 Polyneuropathy, unspecified; M15.0 Primary generalized (osteo)arthritis; M81.0 Age-related osteoporosis without current pathological fracture; I73.9 Peripheral vascular disease, unspecified; M79.7 Fibromyalgia; M35.3 Polymyalgia rheumatica; R26.2 Difficulty in walking, not elsewhere classified; R26.89 Other abnormalities of gait and mobility; M25.522 Pain in left elbow; M06.4 Inflammatory polyarthropathy; H40.1132 Primary open-angle glaucoma, bilateral, moderate stage; M06.9 Rheumatoid arthritis, unspecified; M62.838 Other muscle spasm; H52.533 Spasm of accommodation, bilateral; H60.399 Other infective otitis externa, unspecified ear; E46 Unspecified protein-calorie malnutrition; N64.4 Mastodynia; Z12.31 Encounter for screening mammogram for malignant neoplasm of breast; Z68.27 Body mass index [BMI] 27.0-27.9, adult; Z12.11 Encounter for screening for malignant neoplasm of colon

== ENCOUNTER 2024-04-21 07:47 | Outpatient (CLI) | payer OTHER | END 2024-04-21 07:55 | disposition home or self-care (01) | LOC: MAMO-SONO 07:47 | PROVIDERS: ATTEND Internal Medicine | DX: N64.4 Mastodynia (principal); I10 Essential (primary) hypertension; E78.9 Disorder of lipoprotein metabolism, unspecified; M89.9 Disorder of bone, unspecified; G62.9 Polyneuropathy, unspecified; M15.9 Polyosteoarthritis, unspecified; M81.0 Age-related osteoporosis without current pathological fracture; I73.9 Peripheral vascular disease, unspecified; M79.7 Fibromyalgia; Z12.31 Encounter for screening mammogram for malignant neoplasm of breast ==

== ENCOUNTER 2024-08-05 07:27 | Outpatient (CLI) | payer OTHER ==
[2024-08-05 08:07] LABS: BASO % 0.6 % (0.1-1.2); EOS # 0.25 (0.04-0.54); EOS % 3.6 % (0.7-7.0); HEMATOCRIT 36.8 % (34.1-44.9); HEMOGLOBIN 11.9 g/dL (11.2-15.7); LYMPH # 2.04 (1.18-3.74); LYMPH % 29.7 % (19.3-53.1); MEAN CORPUSCULAR HEMOGLOBIN 28.3 pg (25.6-32.2); MONO # 0.73 (0.24-0.82); MONO % 10.6 % (4.7-12.5); NEUT # 3.78 (1.56-6.13); NEUT % 55.2 % (34.0-71.1); PLATELET COUNT 249 K/uL (163-369); RED BLOOD COUNT 4.21 M/uL (3.93-5.22); RED CELL DISTRIBUTION WIDTH 13.3 % (11.6-14.4)
[2024-08-05 08:11] LABS: PH,URINE 5.5 (5.0-8.0); URINE APPEARANCE Clear; URINE BILIRRUBIN Negative (NEGATIVE); URINE BLOOD Negative; URINE COLOR Yellow; URINE GLUCOSE Negative (NEGATIVE); URINE KETONE Negative (NEGATIVE); URINE LEUKOCYTE Trace; URINE NITRATE Negative; URINE PROTEIN 30 (NEGATIVE); URINE UROBILINOGEN 0.2 E.U./dl
[2024-08-05 08:14] LABS: URINE BACTERIA 276.5 uL (0.0-1933); URINE EPITHELIAL CELLS 2.8 uL (0.0-38.8); URINE RBC 2.7 uL (0.0-20.8); URINE WBC 4.7 uL (0.0-23.2)
[2024-08-05 09:05] LABS: URINE CAST 0.14 uL (0.0-1.40)
[2024-08-05 09:16] LABS: ALBUMIN 3.4 gm/dL (3.4-5.0); BILIRUBIN TOTAL 0.48 mg/dL (0.3-1.2); CALCIUM 9.9 mg/dL (8.5-10.1); CREATININE SERUM 0.51 mg/dL (0.55-1.02); GFR 115.74; GLOBULINA 4.5 G/DL (2.4-3.5); POTASSIUM 4.12 mEq/L (3.5-5.1); TOTAL PROTEIN 7.9 gm/dL (6.4-8.2)
== END 2024-08-05 07:28 | disposition home or self-care (01) ==
LOC: LAB 07:27
PROVIDERS: ATTEND Internal Medicine
DX: E78.9 Disorder of lipoprotein metabolism, unspecified (principal); I10 Essential (primary) hypertension; M89.9 Disorder of bone, unspecified; G62.9 Polyneuropathy, unspecified; M15.9 Polyosteoarthritis, unspecified; M81.0 Age-related osteoporosis without current pathological fracture; I73.9 Peripheral vascular disease, unspecified; M35.3 Polymyalgia rheumatica; R26.2 Difficulty in walking, not elsewhere classified; R26.89 Other abnormalities of gait and mobility; M25.522 Pain in left elbow; M06.4 Inflammatory polyarthropathy; H40.1132 Primary open-angle glaucoma, bilateral, moderate stage; H60.399 Other infective otitis externa, unspecified ear; E46 Unspecified protein-calorie malnutrition; N64.4 Mastodynia; Z68.27 Body mass index [BMI] 27.0-27.9, adult

== ENCOUNTER → 2024-11-20 07:45 | Outpatient (CLI) | payer OTHER ==
[2024-11-20 08:38] LABS: BASO % 0.4 % (0.1-1.2); EOS # 0.34 (0.04-0.54); EOS % 6.4 % (0.7-7.0); LYMPH # 1.48 (1.18-3.74); LYMPH % 27.9 % (19.3-53.1); MEAN PLATELET VOLUME 11.30 fl (9.4-12.4); MONO # 0.59 (0.24-0.82); MONO % 11.1 % (4.7-12.5); NEUT # 2.87 (1.56-6.13); NEUT % 54.0 % (34.0-71.1); RED CELL DISTRIBUTION WIDTH 13.1 % (11.6-14.4)
[2024-11-20 08:56] LABS: URINE APPEARANCE Clear; URINE BILIRRUBIN Negative (NEGATIVE); URINE BLOOD Negative; URINE COLOR Yellow; URINE GLUCOSE Negative (NEGATIVE); URINE KETONE Negative (NEGATIVE); URINE LEUKOCYTE Negative; URINE NITRATE Negative; URINE PROTEIN 30 (NEGATIVE); URINE UROBILINOGEN 0.2 E.U./dl
[2024-11-20 09:03] LABS: URINE BACTERIA 196.7 uL (0.0-1933); URINE EPITHELIAL CELLS 5.0 uL (0.0-38.8); URINE RBC 2.0 uL (0.0-20.8); URINE WBC 5.3 uL (0.0-23.2)
[2024-11-20 09:10] LABS: URINE CAST 0.14 uL (0.0-1.40)
[2024-11-20 09:12] LABS: ALT/SGPT 19.0 U/L (12-78); AST/SGOT 18.0 U/L (15-37); BILIRUBIN TOTAL 0.56 mg/dL (0.3-1.2); BUN CREA RATIO 29.0 (7.0-25.0); CHOL HDL RATIO 4.2 (0-5.0); CREATININE SERUM 0.52 mg/dL (0.55-1.02); GFR 113.17; GLOBULINA 4.5 G/DL (2.4-3.5); GLUCOSE FASTING 88.0 mg/dL (65-100); HDL 45.0 mg/dl (40-60); LDL 127.0 mg/dl (0-130); OSMOLALITY SERUM 287.0 MOSM/KG (275-295); VLDL 18.0 (0-39)
== END | disposition home or self-care (01) ==
LOC: LAB 07:45
PROVIDERS: ATTEND Internal Medicine
DX: E78.9 Disorder of lipoprotein metabolism, unspecified (principal); I10 Essential (primary) hypertension; M89.9 Disorder of bone, unspecified; G62.9 Polyneuropathy, unspecified; M15.9 Polyosteoarthritis, unspecified; M81.0 Age-related osteoporosis without current pathological fracture; I73.9 Peripheral vascular disease, unspecified; M79.7 Fibromyalgia; M35.3 Polymyalgia rheumatica; R26.89 Other abnormalities of gait and mobility; M25.522 Pain in left elbow; M06.4 Inflammatory polyarthropathy; H40.1132 Primary open-angle glaucoma, bilateral, moderate stage; M06.9 Rheumatoid arthritis, unspecified; M62.838 Other muscle spasm; H52.533 Spasm of accommodation, bilateral; H60.399 Other infective otitis externa, unspecified ear; E46 Unspecified protein-calorie malnutrition; N64.4 Mastodynia; Z68.27 Body mass index [BMI] 27.0-27.9, adult